=== PATIENT | female | born 2000 | race Two or more races ===

== ENCOUNTER 2019-06-09 09:08 | Emergency (ER) | payer MEDICAID ==
[~2019-06-09] VITALS: Ht 144.8 cm; Wt 43.1 kg
[2019-06-09 09:17] VITALS: BP 100/52
--- NOTE | 2019-06-09 09:29 | NUR ---
PT. TO ED WITH C/O RIGHT GREAT TOE PAIN FROM INJURY AT [facility] LAST NIGHT. PT. ABLE TO AMBULATE WIHT STEADY GAIT. REDNESS/SWELLING NOTED. DR. WILLARD AT TO EVAL PT. AND DISCUSS POC WITH PT. AND FAMILY.
[2019-06-09] MEDS ORDERED: ACETAMINOPHEN 500 MG TABLET PO ONE (09:30)
[2019-06-09] MEDS ORDERED: IBUPROFEN 200 MG TABLET PO ONE (09:30)
--- NOTE | 2019-06-09 09:49 | NUR ---
REPORT TO RAVI FIGUEROA TO ASSUME CARE OF PT. AT THIS TIME
--- NOTE | 2019-06-09 09:49 | NUR ---
REPORT TAKEN FROM RAVI STEWART. ASSUMED CARE
[2019-06-09] MEDS ORDERED: ACETAMINOPHEN 500 MG TABLET ONE (09:52)
[2019-06-09] MEDS ORDERED: IBUPROFEN 200 MG TABLET ONE (09:52)
== END 2019-06-09 10:42 | disposition home or self-care (01) ==
LOC: ED 10:34
DX: S90.111A Contusion of right great toe without damage to nail, initial encounter (principal); W21.02XA Struck by soccer ball, initial encounter; Y93.66 Activity, soccer; Y92.322 Soccer field as the place of occurrence of the external cause; Y99.8 Other external cause status
CPT/HCPCS: 99283

== ENCOUNTER 2019-06-09 22:51 | Emergency (ER) | payer BC, MEDICAID, OTHER ==
[~2019-06-09] VITALS: Ht 144.8 cm; Wt 44.3 kg
[2019-06-09 22:55] VITALS: BP 93/54
--- NOTE | 2019-06-09 23:19 | NUR ---
pt ambulates from triage to room with steady gait.
--- NOTE | 2019-06-09 23:30 | NUR ---
kamari morgan, at bs with pt at this time.
--- NOTE | 2019-06-09 23:48 | NUR ---
pt d/c with d/c summary. all questions answered. pt toe wrapped and secured with gauze dressing per erp instructions. pt denies any other needs pertaining to this visit and ambulates to registration desk with steady gait for d/c home with mother.
== END 2019-06-09 23:51 | disposition home or self-care (01) ==
LOC: ED 23:09
DX: S90.111A Contusion of right great toe without damage to nail, initial encounter (principal); X58.XXXA Exposure to other specified factors, initial encounter; Y93.89 Activity, other specified; Y92.89 Other specified places as the place of occurrence of the external cause; Y99.8 Other external cause status
CPT/HCPCS: 11740; 99284; 99285

== ENCOUNTER 2019-09-05 17:49 | Emergency (ER) | payer MEDICAID ==
[~2019-09-05] VITALS: Ht 144.8 cm; Wt 46.0 kg
--- NOTE | 2019-09-05 18:35 | NUR ---
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
--- NOTE | 2019-09-05 18:45 | NUR ---
First contact with patient: Patient presents to ER c/o heavy vaginal bleeding x9 days. Intermittent abd pain. Patient also c/o low ext cramping. Last normal menstrual period 08/02. Patient is in NAD. REspirations even and unlabored.
--- NOTE | 2019-09-05 18:47 | NUR ---
Patient also c/o low back pain currently.
[2019-09-05 19:08] LABS: BASOPHILS # (AUTO) 0.03 x10^3/uL (0-0.3); BASOPHILS % (AUTO) 1 % (0-1); EOSINOPHILS # (AUTO) 0.36 x10^3/uL (0-0.8); EOSINOPHILS % (AUTO) 6 % (1-7); LYMPHOCYTES # (AUTO) 2.03 x10^3/uL (1-6.1); LYMPHOCYTES % (AUTO) 34 % (22-44); MD NO; MEAN CORPUSCULAR HGB CONC 33.9 g/dL (32.4-35.8); MEAN CORPUSCULAR VOLUME 88.7 fL (80-100); MEAN PLATELET VOLUME 10.6 fL (7.4-10.4); MONOCYTES % (AUTO) 9 % (2-9); NEUTROPHILS # (AUTO) 2.99 x10^3/uL (1.8-8.0); NEUTROPHILS % (AUTO) 51 % (42-75); PLATELET COUNT 187 x10^3/uL (130-400); RED BLOOD COUNT 4.27 x10^6/uL (3.82-5.3); RED CELL DISTRIBUTION WIDTH 12.8 % (9.6-15.2)
[2019-09-05 19:12] LABS: INTERNATIONAL NORMALIZED RATIO 0.96 (0.93-1.1); PROTHROMBIN TIME 10.2 Seconds (9.6-11.5)
[2019-09-05 19:14] LABS: ALANINE AMINOTRANSFERASE 34 U/L (12-78); ALBUMIN 3.7 g/dL (3.4-5.0); ANION GAP 4 mmol/L (5-15); CALCIUM 8.3 mg/dL (8.5-10.1); CHLORIDE 108 mmol/L (98-107)
[2019-09-05 19:19] LABS: ALKALINE PHOSPHATASE 108 U/L (45-117); BILIRUBIN,TOTAL 0.5 mg/dL (0.2-1.0); CREATININE 0.72 mg/dL (0.55-1.02); TOTAL PROTEIN 7.2 g/dL (6.4-8.2)
[2019-09-05 20:09] VITALS: BP 96/53
--- NOTE | 2019-09-05 20:09 | NUR ---
Patient given discharge instructions and they have confirmed that they understand the instructions. Patient ambulatory with steady gait.
== END 2019-09-05 20:12 | disposition home or self-care (01) ==
LOC: ED 18:53
DX: N93.9 Abnormal uterine and vaginal bleeding, unspecified (principal)
CPT/HCPCS: 36415; 80053; 84703; 85025; 85610; 99283

== ENCOUNTER 2020-03-21 17:28 | Emergency (ER) | payer MEDICAID ==
[~2020-03-21] VITALS: Ht 144.8 cm; Wt 46.0 kg
[2020-03-21 18:11] VITALS: BP 102/56
[2020-03-21] MEDS ORDERED: ACETAMINOPHEN 500 MG TABLET ONE (18:15)
--- NOTE | 2020-03-21 18:16 | NUR ---
PT MEDICATED PER EMAR.
[2020-03-21] MEDS ORDERED: DEXAMETHASONE 4 MG/ML, 1ML PO ONE (18:30)
[2020-03-21] MEDS ORDERED: ACETAMINOPHEN 500 MG TABLET PO ONE (18:30)
[2020-03-21] MEDS ORDERED: LIDOCAINE-MPF 1%, 5ML INFIL ONE (19:30)
== END 2020-03-21 19:25 | disposition home or self-care (01) ==
LOC: ED 19:19
DX: J03.90 Acute tonsillitis, unspecified (principal)
CPT/HCPCS: 87081; 87635; 87880; 99283